=== PATIENT | male | born 1980 | race Caucasian/White ===

== ENCOUNTER 2020-12-22 18:13 | Emergency (ER) | payer OTHER ==
[2020-12-22 18:20] VITALS: BP 110/62; PULSE 75; RESP 16; TEMP 97.9
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
== END 2020-12-22 20:54 | disposition home or self-care (01) ==
LOC: EC 18:13
DX: S93.402A Sprain of unspecified ligament of left ankle, initial encounter (principal); Y92.410 Unspecified street and highway as the place of occurrence of the external cause
CPT/HCPCS: 99283